=== PATIENT | female | born 1945 | race Hispanic/Latino ===

== ENCOUNTER 2021-03-25 14:49 | Emergency (ER) | payer MEDICARE ==
[~2021-03-25] VITALS: Ht 152.4 cm; Wt 43.1 kg
[~2021-03-25 14:49] MED LIST: NORCO 10-325 T1 EACH PO; NORTRIPTYLINE H10 MG PO; RANITIDINE HCL150 M1 PO; SIMVASTATIN20 MG PO
[2021-03-25] MEDS ORDERED: CLEOCIN HCL300 MG PO (15:26)
[2021-03-25 17:29] VITALS: BP 110/56
== END 2021-03-25 17:30 | disposition home or self-care (01) ==
LOC: ER 15:20
DX: L24.89 Irritant contact dermatitis due to other agents (principal); K21.9 Gastro-esophageal reflux disease without esophagitis; M81.0 Age-related osteoporosis without current pathological fracture; Z93.1 Gastrostomy status
CPT/HCPCS: 99282